=== PATIENT | female | born 1950 | race Caucasian/White ===

== ENCOUNTER 2024-08-09 09:09 | Emergency (ER) | payer MEDICARE, MEDICAID ==
[~2024-08-09] VITALS: Ht 160 cm; Wt 58.9 kg
[~2024-08-09 09:09] MED LIST: LACO100T14 PO; LEVE-71 PO; LEVO-72 PO
[2024-08-09] MEDS: LORazepam 2 MG/ML VIAL IVP ONE (09:32)
[2024-08-09 09:40] LABS: BASOPHILS % (AUTO) 0.6 % (0.0-2.0); EOSINOPHILS % (AUTO) 2.7 % (1.0-6.0); HEMATOCRIT 36.4 % (36-46); HEMOGLOBIN 12.1 g/dL (12.0-16.0); LYMPHOCYTES # (AUTO) 2.4 K/uL (1.0-4.8); LYMPHOCYTES % (AUTO) 38.7 % (22.0-44.0); MEAN CORPUSCULAR HEMOGLOBIN 34.8 pg (26.0-34.0); MEAN CORPUSCULAR HGB CONC 33.3 G/dL (31.0-37.0); MEAN CORPUSCULAR VOLUME 104 fL (80-100); MONOCYTES # (AUTO) 0.4 K/uL (0.1-1.0); MONOCYTES % (AUTO) 6.6 % (2.0-9.0); NEUTROPHILS # (AUTO) 3.2 K/uL (1.8-7.7); NEUTROPHILS % (AUTO) 51.4 % (40.0-70.0); PLATELET COUNT (AUTO) 335 K/uL (150-450); RED BLOOD CELL COUNT(AUTO) 3.48 MIL/uL (4.00-5.20); RED CELL DISTRIBUTION WIDTH 20.3 % (11.5-14.5); WHITE BLOOD COUNT (AUTO) 6.3 K/uL (4.5-11.0)
[2024-08-09 09:50] LABS: RBC MORPHOLOGY COMMENT ABNORMAL RBC MORPH
[2024-08-09 09:51] LABS: CREATININE 1.02 mg/dL (0.60-1.30)
[2024-08-09 09:55] LABS: POTASSIUM 2.8 mmol/L (3.5-5.1)
[2024-08-09 10:09] LABS: MAGNESIUM 1.3 mg/dL (1.80-2.40)
[2024-08-09] MEDS: SODIUM CHLORIDE 0.9% 1,000 ML IV ONE (11:01)
[2024-08-09] MEDS: POTASSIUM CHL 10 MEQ/WATER 50 ML IV SCH (11:01)
[2024-08-09 11:24] VITALS: TEMP 98.6
[2024-08-09 11:26] VITALS: BP 126/68; PULSE 100; RESP 20; O2SAT 99
[2024-08-09] MEDS: MAGNESIUM SULFATE 2 GM/WATER 50 ML IV ONE (12:19)
== END 2024-08-09 13:22 | disposition short-term general hospital (02) ==
LOC: EMS 09:11
DX: G40.909 Epilepsy, unspecified, not intractable, without status epilepticus (principal); C79.31 Secondary malignant neoplasm of brain; R51.9 Headache, unspecified; M54.2 Cervicalgia; R25.3 Fasciculation; E87.6 Hypokalemia; E83.42 Hypomagnesemia; Z91.014 Allergy to mammalian meats; Z85.3 Personal history of malignant neoplasm of breast; Z85.841 Personal history of malignant neoplasm of brain
CPT/HCPCS: 99291; 70450; 96365; 96375; 80048; 83735; 85025; 36415; 71045; 72125; 93005; 96368; G0482; J2060; J3480; J7030; J3475

== ENCOUNTER 2025-07-14 19:29 | Inpatient (IN) | payer MEDICARE, MEDICAID ==
[~2025-07-14] VITALS: Ht 162.6 cm; Wt 71.4 kg
[2025-07-14 19:58] LABS: PLATELET COUNT (AUTO) 299 K/uL (150-450); RED BLOOD CELL COUNT(AUTO) 4.05 MIL/uL (4.00-5.20); RED CELL DISTRIBUTION WIDTH 18.4 % (11.5-14.5); WHITE BLOOD COUNT (AUTO) 8.1 K/uL (4.5-11.0)
[2025-07-14] MEDS: LevETIRAcetam 1,000 MG in DEXTROSE 5%-WATER 100 ML IV ONE (20:02)
[2025-07-14 20:07] LABS: CALCIUM, TOTAL 8.6 mg/dL (8.8-10.5); CREATININE 1.0 mg/dL (0.60-1.30); GLOMERULAR FILTR. RATE CALC 54.0 mL/min (>60); GLUCOSE,RANDOM 136.0 mg/dL (70-110); SODIUM SERUM 138.0 mmol/L (136-145); UREA NITROGEN, BLOOD 18.0 mg/dL (7-18)
[2025-07-14 20:12] LABS: ASPARTATE AMINOTRANSFERASE 25.0 U/L (15-37); TOTAL PROTEIN, SERUM 7.6 g/dL (6.4-8.2)
[2025-07-14 20:14] LABS: TROPONIN I-HIGH SENSITIVITY 5 ng/L (<51)
[2025-07-14 20:42] LABS: BAND NEUTROPHILS % (MANUAL) 3 % (0-5); BASOPHILS % (MANUAL) 1 % (0-2); EOSINOPHILS % (MANUAL) 2 % (1-6); LYMPHOCYTES % (MANUAL) 34 % (22-44); MONOCYTES % (MANUAL) 8 % (2-9); SEGMENTED NEUTROPHILS % 52 % (40-70)
[2025-07-14] MEDS ORDERED: ONDANSETRON HCL 4 MG/2 ML VIAL IVP PRN (20:45)
[2025-07-14] MEDS ORDERED: IPRATROPIUM BROMIDE 0.5 MG/2.5 ML NEB SOLUTION NEB PRN (20:45)
[2025-07-14] MEDS ORDERED: HYDROCODONE/ACETAMINOPHEN 5-325 MG TABLET PO PRN (20:45)
[2025-07-14] MEDS ORDERED: BISACODYL 10 MG RECTAL RECTAL SUPPOSITORY PR PRN (20:45)
[2025-07-14] MEDS ORDERED: DEXTROSE 50%-WATER 25 GM/50 ML SYRINGE IVP PRN (20:45)
[2025-07-14] MEDS ORDERED: ACETAMINOPHEN 325 MG TABLET PO PRN (20:45)
[2025-07-14] MEDS ORDERED: MORPHINE SULFATE 4 MG/ML SYRINGE IVP PRN (20:45)
[2025-07-14] MEDS ORDERED: ZOLPIDEM TARTRATE 5 MG TABLET PO PRN (20:45)
[2025-07-14] MEDS ORDERED: MAGNESIUM HYDROXIDE SUSPENSION 30 ML UDCUP PO PRN (20:45)
[2025-07-14] MEDS ORDERED: ALBUTEROL SULFATE 2.5 MG/0.5 ML NEB SOLUTION NEB PRN (20:45)
[2025-07-14] MEDS: LACOSAMIDE 100 MG TABLET PO SCH (21:07)
[2025-07-14] MEDS: POTASSIUM CHLORIDE 20 MEQ ER TABLET PO ONE (23:00)
[2025-07-14 23:42] VITALS: BP 145/61; PULSE 75; RESP 18; TEMP 98.4; O2SAT 99
[2025-07-15] MEDS: HEPARIN SODIUM,PORCINE 5,000 UNITS/ML VIAL SQ SCH (00:42)
[2025-07-15 01:00] LABS: TROPONIN I-HIGH SENSITIVITY 12 ng/L (<51)
[2025-07-15] MEDS ORDERED: INFLUENZA VIRUS VACCINE TVS (6MO+) 2025-26/PF 45 MCG/0.5 ML SYRINGE IM. ONE (02:45)
[2025-07-15 05:15] VITALS: BP 140/54; PULSE 79; RESP 18; TEMP 98.2; O2SAT 98
[2025-07-15 06:38] LABS: APPEARANCE,URINE CLEAR (CLEAR); GLUCOSE, URINE (UA) NEGATIVE (NEGATIVE); LEUKOCYTE ESTERASE ,URINE NEGATIVE (NEGATIVE); NITRATE,URINE NEGATIVE (NEGATIVE); OCCULT BLOOD,URINE NEGATIVE (NEGATIVE); PH,URINE DRUG SCREEN 7.5 (5.0-8.0); SPECIFIC GRAVITIY, URINE 1.029 (1.003-1.030)
[2025-07-15 06:46] LABS: ALCOHOL, URINE DRUG SCREEN NEGATIVE (NEGATIVE); AMPHET/METH SCREEN,URINE NEGATIVE (NEGATIVE); BARBITURATE SCREEN, URINE NEGATIVE (NEGATIVE); CANNABINOID SCREEN,URINE NEGATIVE (NEGATIVE); COCAINE SCREEN,URINE NEGATIVE (NEGATIVE); METHADONE SCREEN, URINE NEGATIVE (NEGATIVE)
[2025-07-15 07:41] LABS: TROPONIN I-HIGH SENSITIVITY 8 ng/L (<51)
[2025-07-15 08:15] VITALS: BP 148/58; PULSE 80; RESP 18; TEMP 97.5; O2SAT 97
[2025-07-15] MEDS: PANTOPRAZOLE SODIUM 40 MG DR TABLET PO SCH (08:21)
[2025-07-15 11:24] VITALS: BP 138/60; PULSE 79; RESP 18; TEMP 98; O2SAT 98
[2025-07-15 11:31] LABS: GLUCOMETER DEV NAME(LOC) 5N.2C; GLUCOSE,POINT OF CARE 134 MG/DL (70-110)
[2025-07-15] MEDS: INSULIN LISPRO 100 UNITS/ML SQ PRN (12:03)
[2025-07-15 16:10] VITALS: BP 140/74; PULSE 83; RESP 18; TEMP 98.1; O2SAT 96
[2025-07-15 19:11] LABS: GLUCOMETER DEV NAME(LOC) 5S.1E; GLUCOSE,POINT OF CARE 185 MG/DL (70-110)
[2025-07-15 19:11] LABS: GLUCOMETER DEV NAME(LOC) 5S.1E; GLUCOSE,POINT OF CARE 181 MG/DL (70-110)
[2025-07-15 19:44] VITALS: BP 142/69; PULSE 86; RESP 18; TEMP 98.4; O2SAT 96
[2025-07-16 00:21] LABS: GLUCOMETER DEV NAME(LOC) 5S.1E; GLUCOSE,POINT OF CARE 293 MG/DL (70-110)
[2025-07-16 00:31] VITALS: BP 129/77; PULSE 89; RESP 18; TEMP 98; O2SAT 95
[2025-07-16] MEDS ORDERED: MAGNESIUM SULFATE 2 GM/WATER 50 ML IV PRN (02:45)
[2025-07-16] MEDS ORDERED: MAGNESIUM SULFATE 4 GM/WATER 100 ML IV PRN (02:45)
[2025-07-16] MEDS ORDERED: MAGNESIUM OXIDE 400 MG TABLET PO PRN (02:45)
[2025-07-16 05:24] VITALS: BP 111/62; PULSE 85; RESP 16; TEMP 98.1; O2SAT 97
[2025-07-16 06:50] LABS: GLUCOMETER DEV NAME(LOC) 5S.1E; GLUCOSE,POINT OF CARE 128 MG/DL (70-110)
[2025-07-16 07:22] VITALS: BP 133/74; PULSE 83; RESP 16; TEMP 98.2; O2SAT 95
[2025-07-16 11:18] VITALS: BP 134/66; PULSE 77; RESP 18; TEMP 98.1; O2SAT 97
[2025-07-16 12:05] LABS: GLUCOMETER DEV NAME(LOC) 5S.1E; GLUCOSE,POINT OF CARE 151 MG/DL (70-110)
[2025-07-16] MEDS ORDERED: LEVE-71 PO (12:27)
== END 2025-07-16 14:23 | disposition home or self-care (01) | DRG 101 ==
LOC: EMS 19:29 → EDH 20:42 → 5N 22:53
PROVIDERS: ADMIT Hospitalist; ATTEND Hospitalist
DX: G40.909 Epilepsy, unspecified, not intractable, without status epilepticus (principal); C79.31 Secondary malignant neoplasm of brain; I69.351 Hemiplegia and hemiparesis following cerebral infarction affecting right dominant side; E04.2 Nontoxic multinodular goiter; E87.6 Hypokalemia; Z85.3 Personal history of malignant neoplasm of breast; Z88.8 Allergy status to other drugs, medicaments and biological substances
CPT/HCPCS: 70496; 70498; 71045; 80053; 80307; 81001; 82040; 82948; 82962; 84484; 85025; 85610; 85730; 86850; 86900; 86901; 92610; 93005; 99285; G0480; J0712; J1644; J7060; 36415-L1; 36415-TC; 70450; 70450-TC